=== PATIENT | female | born 1985 | race Caucasian/White ===

== ENCOUNTER 2016-12-17 00:14 | Emergency (ER) | payer SELFPAY ==
[2016-12-17 00:36] VITALS: BP 133/87; PULSE 87; TEMP 98.4; BMI 23.9
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
[2016-12-17] MEDS ORDERED: ACETAMINOPHEN 325 MG TABLET (FP) PO ONE (00:47)
[2016-12-17] MEDS ORDERED: ACETAMINOPHEN 325 MG TABLET (FP) ONE (01:37)
== END 2016-12-17 04:40 | disposition home or self-care (01) ==
LOC: JER 00:14
DX: S00.03XA Contusion of scalp, initial encounter (principal); S05.11XA Contusion of eyeball and orbital tissues, right eye, initial encounter; Y04.2XXA Assault by strike against or bumped into by another person, initial encounter; Y93.89 Activity, other specified; Y92.038 Other place in apartment as the place of occurrence of the external cause; Y07.03 Male partner, perpetrator of maltreatment and neglect
CPT/HCPCS: 70450-TC; 70486-TC; 84703; 99282-25

== ENCOUNTER 2017-08-09 18:01 | Emergency (ER) | payer OTHER ==
--- NOTE | 2017-08-09 18:38 | PDOC ---
Rapid Medical Evaluation Chief Complaint: Headache Time Seen by Provider: 08/09/17 18:35 Medical Evaluation: Allergies Allergy/AdvReac Type Severity Reaction Status Date / Time No Known Allergies Allergy Verified 08/09/17 18:35 08/09/17 18:36 I have performed a brief in-person evaluation of this patient. The patient presents with a chief complaint of: L temporal headache w/ dizziness and L eye twitching Pertinent physical exam findings:Stable w/ unremarkable I have ordered the following:nothing The patient will proceed to the ED for further evaluation.
[2017-08-09 18:39] VITALS: BP 123/87; PULSE 85; TEMP 97.6; BMI 24.4
--- NOTE | 2017-08-09 19:06 | PDOC ---
History of Present Illness - General Chief Complaint: Headache Stated Complaint: HEADACHE Time Seen by Provider: 08/09/17 18:35 History Source: Patient Exam Limitations: No Limitations - History of Present Illness Initial Comments: 08/09/17 18:59 HPI: This 32-year-old female presents to the emergency room with complaint of a headache more on the left side of the temporal area. She is complaining of some eye twitching as well. She's been having this for the last 5 days and has been taking Tylenol 500 as well as Motrin 600 without any relief. She does not typically have migraines. She does not have any recent trauma. She is not having any imbalance. No neck pain or back pain. She states she has some minor stress but nothing out of the abnormal. Chief Compliant: Headache PMH: FH: Pt has not recently traveled outside the country in the last 30 days. Pt has not been in contact with people who have traveled out of the country, in contact with people who have been ill with fever, n, v, d. 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 PSH: Home med use noted on AUG Allergies:nka Past History - Past Medical History Allergies/Adverse Reactions: Allergies Allergy/AdvReac Type Severity Reaction Status Date / Time No Known Allergies Allergy Verified 08/09/17 18:35 Home Medications: Ambulatory Orders NK [No Known Home Medication] 12/12/14 COPD: No DVT: No - Immunization History Immunization Up to Date: Yes - Suicide/Smoking/Psychosocial Hx Smoking Status: No Smoking History: Never smoked Have you smoked in the past 12 months: No Number of Cigarettes Smoked Daily: 0 Information on smoking cessation initiated: No Hx Alcohol Use: No Drug/Substance Use Hx: No Substance Use Type: None Neuro Specific PMHX - Complaint Specific PMHX Migraine: No TIA: No Review of Systems - Review of Systems Able to Perform ROS?: Yes Comments:: 08/09/17 19:06 General statement: Hematology: neg history of bleeding/blood thinners Skin: Neg for lesions, rash, bruising. HEENT: Left eye twitching Respiratory: Neg SOB or difficulty in breathing Cardiac: Neg chest pain GI: Neg pain, n/v : Neg problems on voiding MS: Neg for joint pain/stiffness, no edema Neuro: Neg for LOC, weakness, + headache Endocrine: Neg for excess thirst/hunger, cold/heat intolerance, excess sweating Allergies: Neg for allergies *Physical Exam - Vital Signs Last Vital Signs Temp Pulse Resp BP Pulse Ox 97.6 F 85 16 123/87 99 08/09/17 18:35 08/09/17 18:35 08/09/17 18:35 08/09/17 18:35 08/09/17 18:35 - Physical Exam Comments: 08/09/17 19:08 General Appearance: This well appearing 32-year-old female V/S: hemodynamically stable, afebrile Skin: WNL of pt's skin color, no signs of pallor, mottling, cyanosis Head:symmetrical Eyes: EOM's intact, PERRLA with some noted muscle twitching of the upper eyelids of the left eye Ears: denies pain Nose: patent Throat: lips, teeth, gums, tongue, buccal mucos pink and moist Lungs: Chest symmetry equal. Cap refill <3 seconds. Lung sounds clear Cardiac: PMI at R 4MCL space, pos S1 and S2, regular rate. Abdomen: Soft, round, nontender : Not observed Muscularskeletal: Gait steady, ambulated in to ER, no edema +PMS Neuro: AAOx3, cognitively intact, speech clear and appropriate. Medical Decision Making - Medical Decision Making 08/09/17 19:08 Patient was seen and examined. Patient is stating she has a tension headache to the left side of her head. Been going on for several days. At this time she is alert he tried Motrin and Tylenol. I am going to give her IV fluids as well as IV Reglan and let her rest and see if we can break this cluster headache. 08/09/17 20:10 Date now resolved *DC/Admit/Observation/Transfer Diagnosis at time of Disposition: Headache around the eyes - Discharge Dispostion Disposition: HOME Condition at time of disposition: Good Admit: No - Referrals - Patient Instructions Printed Discharge Instructions: DI for Cluster Headache Additional Instructions: Discharge instructions 1. Please follow up with your primary physician within the next few days and explain that you have been seen here in the Emergency Room. 2. If you experience any worsening of symptoms, such as nausea, vomiting, continuous headache that you cannot break it home please return to the ER 3. Rest, continue to take Excedrin as needed for pain 4. Drink plenty of water - Post Discharge Activity
[2017-08-09] MEDS ORDERED: METOCLOPRAMIDE HCL INJECTION 10 MG/2 ML VIAL IVPUSH ONE (19:10)
[2017-08-09] MEDS ORDERED: SODIUM CHLORIDE 1,000 ML IV STA (19:10)
[2017-08-09] MEDS ORDERED: KETOROLAC TROMETHAMINE 30 MG/1 ML VIAL IVPUSH ONE (19:10)
[2017-08-09] MEDS ORDERED: METOCLOPRAMIDE HCL INJECTION 10 MG/2 ML VIAL ONE (19:14)
[2017-08-09] MEDS ORDERED: KETOROLAC TROMETHAMINE 30 MG/1 ML VIAL ONE (19:14)
== END 2017-08-09 20:18 | disposition home or self-care (01) ==
LOC: JERFT 18:01
PROC: 3E033GC Introduction of Other Therapeutic Substance into Peripheral Vein, Percutaneous Approach (ICD-10-PCS; principal; 2017-08-09)
PROC: 3E0333Z Introduction of Anti-inflammatory into Peripheral Vein, Percutaneous Approach (ICD-10-PCS; 2017-08-09)
DX: R51 Headache (principal)
CPT/HCPCS: 99281-25

== ENCOUNTER 2019-06-24 18:09 | Emergency (ER) | payer OTHER ==
[2019-06-24] MEDS ORDERED: ONDANSETRON *ODT* 4 MG TABLET SL ONE (18:21)
--- NOTE | 2019-06-24 18:21 | PDOC ---
Rapid Medical Evaluation Time Seen by Provider: 06/24/19 18:18 Medical Evaluation: Allergies Allergy/AdvReac Type Severity Reaction Status Date / Time No Known Allergies Allergy Verified 06/24/19 18:17 06/24/19 18:19 Pt presents to the ER for dysuria, vomiting and diarrhea for 3 days. Tried AZO for her symptoms with little relief. Exam: No CVA tenderness, suprapubic discomfort Orders: urine, labs IV Pt to proceed to the ER for evaluation Discharge Disposition - Diagnosis Dysuria - Referrals - Patient Instructions - Post Discharge Activity
[2019-06-24 18:23] VITALS: BP 125/77; PULSE 108; TEMP 98; BMI 25.7
[2019-06-24] MEDS ORDERED: ONDANSETRON *ODT* 4 MG TABLET ONE (18:48)
--- NOTE | 2019-06-24 20:04 | PDOC ---
History of Present Illness - General Chief Complaint: Urinary Problem Stated Complaint: VOMITING/URINE PROBLEM Time Seen by Provider: 06/24/19 18:18 - History of Present Illness Initial Comments: 06/24/19 20:02 34-year-old female without comorbidities presents for evaluation of dysuria x2 days without systemic symptoms and 1 day of vomiting and diarrhea which started today Past History - Past Medical History Allergies/Adverse Reactions: Allergies Allergy/AdvReac Type Severity Reaction Status Date / Time No Known Allergies Allergy Verified 06/24/19 18:17 Home Medications: Ambulatory Orders Nitrofurantoin Monohyd/M-Cryst [Macrobid -] 100 mg PO BID #14 capsule 06/24/19 Phenazopyridine HCl [Pyridium] 200 mg PO TID #6 tablet 06/24/19 COPD: No DVT: No - Immunization History Immunization Up to Date: Yes - Psycho Social/Smoking Cessation Hx Smoking Status: No Smoking History: Never smoked Have you smoked in the past 12 months: No Number of Cigarettes Smoked Daily: 0 Hx Alcohol Use: No Drug/Substance Use Hx: No Substance Use Type: None Review of Systems - Review of Systems Constitutional: Yes: Chills, Malaise. No: Fever, Night Sweats Respiratory: No: Cough ABD/GI: Yes: Diarrhea, Nausea, Vomiting. No: Blood Streaked Bowels : Yes: Burning, Dysuria, Frequency. No: Discharge, Flank Pain *Physical Exam - Vital Signs Last Vital Signs Temp Pulse Resp BP Pulse Ox 98 F 108 H 18 125/77 100 06/24/19 18:18 06/24/19 18:18 06/24/19 18:18 06/24/19 18:18 06/24/19 18:18 - Physical Exam 06/24/19 20:02 GENERAL: The patient is awake, alert, and fully oriented, in no acute distress. HEAD: Normal with no signs of trauma. EYES: sclera anicteric, conjunctiva clear. ENT: Ears normal tympanic membranes normal oropharynx clear uvula midline NECK: Normal range of motion LUNGS: Breath sounds equal, clear to auscultation bilaterally. No wheezes, and no crackles. HEART: S1 and S2 without murmur, rub or gallop. ABDOMEN: Soft, nontender, normoactive bowel sounds. No guarding, no rebound. No masses. EXTREMITIES: Normal range of motion, no edema. No clubbing or cyanosis. No cords, erythema, or tenderness. NEUROLOGICAL: Cranial nerves II through XII grossly intact. Normal speech, normal gait. PSYCH: Normal mood, normal affect. SKIN: Warm, Dry, normal turgor, no rashes or lesions noted. ED Treatment Course - Medications Given in the ED: ED Medications Discontinued Medications Generic Name Dose Route Start Last Admin Trade Name Freq PRN Reason Stop Dose Admin Ondansetron HCl 4 mg 06/24/19 18:21 06/24/19 18:49 Zofran Odt - SL 06/24/19 18:22 4 mg ONCE ONE Administration Medical Decision Making - Medical Decision Making 06/24/19 20:10 Macrobid and Pyridium for UTI supportive care for viral gastroenteritis Discharge - Discharge Information Problems reviewed: Yes Clinical Impression/Diagnosis: Dysuria, Gastroenteritis, UTI (urinary tract infection) Condition: Stable Disposition: HOME - Admission No - Additional Discharge Information Prescriptions: Nitrofurantoin Monohyd/M-Cryst [Macrobid -] 100 mg PO BID #14 capsule Phenazopyridine HCl [Pyridium] 200 mg PO TID #6 tablet - Follow up/Referral Referrals: Shin Dunn MD [Primary Care Provider] - - Patient Discharge Instructions Additional Instructions: Please take the antibiotics as directed and return to the emergency room for worsening symptoms. The urinary tract anesthetic which you were prescribed tonight will turn your urine orange to red color. This is normal. Supportive care for viral gastroenteritis small sips of Pedialyte throughout the day to maintain hydration Tylenol Motrin for fever. Without fail follow-up with your primary care physician in 1 to 2 days and return to the emergency room should symptoms worsen. - Post Discharge Activity
[2019-06-24 20:08] LABS: EPI CELLS 0.2 /HPF (0-5/HPF); HYALINE CASTS 8 /lpf (0-8); PH,URINE 5.5 (5.0-8.0); URINE APPEARANCE CLOUDY; URINE BACTERIA 7.6 /hpf (NEGATIVE); URINE BILIRUBIN NEGATIVE (NEGATIVE); URINE COLOR YELLOW; URINE GLUCOSE (UA) NEGATIVE (NEGATIVE); URINE KETONE NEGATIVE (NEGATIVE); URINE LEUK ESTERASE 3+ (NEGATIVE); URINE NITRITE NEGATIVE (NEGATIVE); URINE PROTEIN 1+ (NEGATIVE); URINE RBC 2 /hpf (0-4); URINE UROBILINOGEN 0.2 mg/dL (0.2-1.0); URINE WBC 141 /hpf (0-5)
== END 2019-06-24 20:22 | disposition home or self-care (01) ==
LOC: JERFT 18:09
DX: N39.0 Urinary tract infection, site not specified (principal); K52.9 Noninfective gastroenteritis and colitis, unspecified
CPT/HCPCS: 81003; 84703; 87086; 99282-25; Q0162

== ENCOUNTER 2022-02-07 14:12 | Emergency (ER) | payer OTHER ==
[2022-02-07] MEDS ORDERED: ACETAMINOPHEN 500 MG TABLET (FP) PO ONE (14:48)
[2022-02-07 14:54] VITALS: RESP 20; TEMP 98.5; BMI 27.4
[2022-02-07] MEDS ORDERED: ACETAMINOPHEN 325 MG TABLET (FP) ONE (15:06)
[2022-02-07 19:03] VITALS: BP 135/87; PULSE 85
[2022-02-07] MEDS ORDERED: KETOROLAC TROMETHAMINE 30 MG/1 ML VIAL IM ONE (19:03)
[2022-02-07] MEDS ORDERED: KETOROLAC TROMETHAMINE 30 MG/1 ML VIAL ONE (19:05)
== END 2022-02-07 19:41 | disposition home or self-care (01) ==
LOC: JER 14:12
PROC: 3E0233Z Introduction of Anti-inflammatory into Muscle, Percutaneous Approach (ICD-10-PCS; principal; 2022-02-07)
DX: Z04.1 Encounter for examination and observation following transport accident (principal)
CPT/HCPCS: 70450-TC; 71045-TC-FY; 84703; 99284-25

== ENCOUNTER 2023-08-27 21:11 | Observation (INO) | payer OTHER ==
[2023-08-27 21:22] VITALS: BMI 32.1
[2023-08-27] MEDS ORDERED: RACEPINEPHRINE IH SOL 2.25% 11.25 MG/0.5 ML VIAL NEB ONE (21:53)
[2023-08-27] MEDS ORDERED: methylPREDNISolone NA SUCC 125 MG/2 ML VIAL ONE (21:54)
[2023-08-27] MEDS ORDERED: FAMOTIDINE 20 MG/50 ML IVPB 20 MG/50 ML MG IVPB ONE (21:54)
[2023-08-27] MEDS: RACEPINEPHRINE IH SOL 2.25% 11.25 MG/0.5 ML VIAL IH ONE (22:37)
[2023-08-27] MEDS: methylPREDNISolone NA SUCC 125 MG/2 ML VIAL IVPUSH ONE (22:37)
[2023-08-27] MEDS: FAMOTIDINE 20 MG/50 ML IVPB 20 MG/50 ML MG IVPB ONE (22:37)
[2023-08-27] MEDS: ALBUTEROL SO4 2.5/IPRATROPIUM 0.5 INH SOL 3 ML VIAL.NEB. NEB SCH (23:47)
[2023-08-28 00:01] LABS: BASO % 0.3 % (0-2.0); EOS % 1.1 % (0-4.5); HEMATOCRIT 40.5 % (32.4-45.2); HEMOGLOBIN 13.7 GM/dL (10.7-15.3); MCH 28.9 pg (25.7-33.7); MCHC 33.8 g/dl (32.0-36.0); MEAN CELL VOLUME 85.5 fl (80-96); MEAN PLT VOLUME 8.9 fl (7.5-11.1); MONO % 3.5 % (3.8-10.2); NEUT % 82.1 % (42.8-82.8); PLATELET COUNT 228 10^3/uL (134-434); RBC 4.74 M/mm3 (3.60-5.2); RDW 12.7 % (11.6-15.6); WHITE BLOOD COUNT 11.7 K/mm3 (4.0-10.0)
[2023-08-28 00:19] LABS: POTASSIUM 3.8 mmol/L (3.5-5.1)
[2023-08-28 00:20] LABS: CALCIUM 9.3 mg/dL (8.5-10.1)
[2023-08-28 00:21] LABS: ALBUMIN 3.8 g/dl (3.4-5.0)
[2023-08-28 00:24] LABS: CREATININE 0.7 mg/dL (0.55-1.3)
[2023-08-28 00:26] LABS: BILIRUBIN,TOTAL 0.4 mg/dL (0.2-1); TOT PROT 7.6 g/dl (6.4-8.2)
[2023-08-28] MEDS ORDERED: CALAMINE 8% TOPICAL LOTION 177 ML BOTTLE TP PRN (04:03)
[2023-08-28 08:34] LABS: EPI CELLS >36 /uL (0-25.1); HYALINE CASTS 1 /uL (0-3.1); PH,URINE 5.5 (5.0-8.0); URINE APPEARANCE CLOUDY; URINE BACTERIA 3097 /uL (0-1359); URINE BILIRUBIN NEGATIVE (NEGATIVE); URINE COLOR YELLOW; URINE GLUCOSE (UA) NEGATIVE (NEGATIVE); URINE KETONE NEGATIVE (NEGATIVE); URINE LEUK ESTERASE TRACE (NEGATIVE); URINE NITRITE NEGATIVE (NEGATIVE); URINE PROTEIN NEGATIVE (NEGATIVE); URINE RBC 27 /uL (0-23.9); URINE UROBILINOGEN 0.2 mg/dL (0.2-1.0); URINE WBC 54 /uL (0-25.8)
[2023-08-28 12:12] LABS: HIV INTERPRETATION NEGATIVE (NEGATIVE)
[2023-08-28] MEDS: HYDROCORTISONE 0.5% TOPICAL CREAM 30 GM TUBE TP PRN (15:51)
[2023-08-28 23:58] VITALS: RESP 18
[2023-08-29 07:13] LABS: BASO % 0.3 % (0-2.0); EOS % 0.5 % (0-4.5); HEMATOCRIT 38.4 % (32.4-45.2); HEMOGLOBIN 12.7 GM/dL (10.7-15.3); LYMPH % 28.5 % (8-40); MCH 28.6 pg (25.7-33.7); MCHC 33.1 g/dl (32.0-36.0); MEAN CELL VOLUME 86.5 fl (80-96); MEAN PLT VOLUME 9.5 fl (7.5-11.1); MONO % 6.1 % (3.8-10.2); NEUT % 64.6 % (42.8-82.8); PLATELET COUNT 228 10^3/uL (134-434); RBC 4.44 M/mm3 (3.60-5.2); WHITE BLOOD COUNT 10.8 K/mm3 (4.0-10.0)
[2023-08-29 07:30] LABS: POTASSIUM 3.6 mmol/L (3.5-5.1)
[2023-08-29 07:35] LABS: ALBUMIN 3.4 g/dl (3.4-5.0); CALCIUM 8.4 mg/dL (8.5-10.1)
[2023-08-29 07:39] LABS: BILIRUBIN,TOTAL 0.5 mg/dL (0.2-1); CREATININE 0.7 mg/dL (0.55-1.3)
[2023-08-29 07:40] LABS: TOT PROT 6.6 g/dl (6.4-8.2)
[2023-08-29 08:00] LABS: COCAINE, UR NEGATIVE (NEGATIVE); METHADONE, UR NEGATIVE (NEGATIVE); OPIATES, URI NEGATIVE (NEGATIVE); URINE BARBITURATES NEGATIVE (NEGATIVE); URINE BENZODIAZEPINES NEGATIVE (NEGATIVE)
[2023-08-29 08:01] LABS: PHENCYCLIDINE,URINE NEGATIVE (NEGATIVE)
[2023-08-29 08:03] LABS: URINE AMPHETAMINES NEGATIVE (NEGATIVE)
[2023-08-29 11:35] VITALS: BP 116/69; PULSE 91; TEMP 97.9
== END 2023-08-29 12:54 | disposition home or self-care (01) ==
LOC: JER 21:11 → JERBED 08-28 01:43 → J4S 08-28 03:46
PROVIDERS: ADMIT Internal Medicine; ATTEND Internal Medicine
PROC: 3E0F7GC Introduction of Other Therapeutic Substance into Respiratory Tract, Via Natural or Artificial Opening (ICD-10-PCS; principal; 2023-08-28)
PROC: 3E033GC Introduction of Other Therapeutic Substance into Peripheral Vein, Percutaneous Approach (ICD-10-PCS; 2023-08-28)
DX: R23.3 Spontaneous ecchymoses (principal); D72.829 Elevated white blood cell count, unspecified
CPT/HCPCS: 36415; 70490-TC; 71046-TC-FY; 80053; 80307; 81003; 83735; 84100; 84703; 85025; 86038; 87086; 87389; 87635; 93005; 93010; 94640; 96365; 96375; 96376; 99285-25; G0378

== ENCOUNTER 2024-03-25 13:57 | Emergency (ER) | payer OTHER ==
[2024-03-25 14:07] VITALS: BP 132/81; PULSE 104; RESP 19; TEMP 98.1; BMI 34.5
[2024-03-25] MEDS ORDERED: LIDOCAINE 5% TOPICAL PATCH ONE (14:35)
[2024-03-25] MEDS ORDERED: IBUPROFEN 400 MG TABLET (FP) PO ONE (14:35)
[2024-03-25] MEDS: IBUPROFEN 400 MG TABLET (FP) PO ONE (14:41)
[2024-03-25] MEDS: LIDOCAINE 5% TOPICAL PATCH TP ONE (14:41)
[2024-03-25] MEDS ORDERED: ACETAMINOPHEN 500 MG TABLET (FP) ONE (15:31)
[2024-03-25] MEDS ORDERED: LIDOCAINE PATCH REMOVAL MC SCH (22:00)
== END 2024-03-25 15:52 | disposition home or self-care (01) ==
LOC: JER 13:57
DX: M54.50 Low back pain, unspecified (principal)
CPT/HCPCS: 99283-25